=== PATIENT | male | born 1975 | race Caucasian/White ===

== ENCOUNTER → 2016-03-25 | Outpatient (CLI) | payer OTHER | LOC: LAB 17:16 | PROVIDERS: ATTEND Internal Medicine Endocrinology, Diabetes & Metabolism | DX: E05.90 Thyrotoxicosis, unspecified without thyrotoxic crisis or storm (principal) | CPT/HCPCS: 36415; 84439; 84443 ==

== ENCOUNTER → 2016-07-10 | Outpatient (CLI) | payer OTHER ==
[~2016-07-10] MED LIST: AZIT250T81 PO; DICY20TA33 PO; DM/P295L13 PO; METH5TAB5 PO; ONDA4TAB8 PO
== END ==
LOC: LAB 20:42
PROVIDERS: ATTEND Internal Medicine Endocrinology, Diabetes & Metabolism
DX: Z53.9 Procedure and treatment not carried out, unspecified reason (principal)